=== PATIENT | male | born 1985 | race American Indian/Alaskan Native ===

== ENCOUNTER 2021-05-30 14:05 | Emergency (ER) | payer BC ==
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
[2021-05-30 16:54] VITALS: BP 114/78
== END 2021-05-30 16:48 | disposition home or self-care (01) ==
LOC: ED 14:05
DX: R21 Rash and other nonspecific skin eruption (principal)
CPT/HCPCS: 99282

== ENCOUNTER 2021-11-25 15:24 | Emergency (ER) | payer BC ==
[2021-11-25 16:01] VITALS: BP 118/67
--- NOTE | 2021-11-25 16:16 | Emergency Department Report ---
ED Recheck HPI - General Chief Complaint: Skin Rash Stated Complaint: SKIN OUTBREAK Time Seen by Provider: 11/25/21 16:11 Source: patient Mode of arrival: Ambulatory Limitations: No Limitations - History of Present Illness Initial Comments: This is a 36-year-old male nontoxic, well nourished in appearance, no acute signs of distress presents to the ED for medication refill for chronic rash. Patient stated has intermittent rash to neck area and was prescribed a topical medication and PO but does not remember the name of the medication or dosage. Patient otherwise denies any acute symptoms or complaints. Denies any rash at this time. Denies any itching or rash. Patient denies any drooling, hoarseness or facial swelling. Patient denies any trauma. She denies any fever, chills, nausea, vomiting, chest pain, shortness of breath, headache, stiff neck, numbness or tingling. Denies any allergies or PMH. MD Complaint: medication refill request Returns Today for: request for prescription Associated Symptoms: none. denies: fever, chills, chest pain, shortness of santi th, rash, malaise, nasuea, abdominal pain - Related Data Previous Rx's Medication Instructions Recorded Last Taken Type Sulfamethoxazole/Trimethoprim 1 each PO BID 10 Days #20 tab 05/30/21 Unknown Rx [Bactrim DS TAB] Allergies Allergy/AdvReac Type Severity Reaction Status Date / Time No Known Allergies Allergy Verified 05/30/21 15:27 ED Review of Systems ROS: Stated complaint: SKIN OUTBREAK Other details as noted in HPI Comment: All other systems reviewed and negative Constitutional: denies: chills, fever Eyes: denies: eye pain, eye discharge, vision change ENT: denies: ear pain, throat pain Respiratory: denies: cough, shortness of breath, wheezing Cardiovascular: denies: chest pain, palpitations Endocrine: no symptoms reported Gastrointestinal: denies: abdominal pain, nausea, diarrhea Genitourinary: denies: urgency, dysuria Musculoskeletal: denies: back pain, joint swelling, arthralgia Skin: denies: rash, lesions Neurological: denies: headache, weakness, paresthesias Psychiatric: denies: anxiety, depression Hematological/Lymphatic: denies: easy bleeding, easy bruising ED Past Medical Hx - Past Medical History Previous Medical History?: No - Medications Home Medications: Home Medications Medication Instructions Recorded Confirmed Last Taken Type Sulfamethoxazole/Trimethoprim 1 each PO BID 10 Days #20 tab 05/30/21 Unknown Rx [Bactrim DS TAB] ED Physical Exam - General Limitations: No Limitations General appearance: alert, in no apparent distress - Head Head exam: Present: atraumatic, normocephalic - Eye Eye exam: Present: normal appearance - ENT ENT exam: Present: normal exam, normal orophraynx - Neck Neck exam: Present: normal inspection, full ROM. Absent: lymphadenopathy - Respiratory Respiratory exam: Absent: respiratory distress - Cardiovascular Cardiovascular Exam: Present: regular rate - Extremities Exam Extremities exam: Present: full ROM - Back Exam Back exam: Present: full ROM - Neurological Exam Neurological exam: Present: alert, oriented X3, normal gait - Psychiatric Psychiatric exam: Present: normal affect, normal mood - Skin Skin exam: Present: warm, dry, intact, normal color. Absent: rash, cyanosis, diaphoretic, erythema, urticaria, vesicles, petechiae, pallor, abrasion, ecchymosis ED Course Vital Signs 11/25/21 15:54 Temperature 97.8 F Pulse Rate 77 Respiratory 18 Rate Blood Pressure 118/67 [Right] O2 Sat by Pulse 98 Oximetry - Reevaluation(s) Reevaluation #1: 11/25/21 16:15 Patient is speaking in full sentences with no signs of distress noted. ED Recheck MDM - Medical Decision Making 36-year-old male that presents with medication refill. Patient is stable with exam by me. Exam otherwise is unremarkable at this time. Patient does not remember the dose or name of the medication. Patient was instructed follow-up with a primary care doctor in 3-5 days for medication refill or if symptoms worsen and continue return to emergency room as soon as possible. At time of discharge, the patient does not seem toxic or ill in appearance. No acute signs of distress noted. Patient agrees to discharge treatment plan of care. No f urther questions noted by the patient. Critical care attestation.: If time is entered above; I have spent that time in minutes in the direct care of this critically ill patient, excluding procedure time. ED Disposition Clinical Impression: Medication refill Disposition: HOME / SELF CARE / HOMELESS Is pt being admited?: No Does the pt Need Aspirin: No Condition: Stable Additional Instructions: Follow-up with a primary care doctor in 3-5 days for medication refill or if symptoms worsen and continue return to emergency room as soon as possible. Referrals: [facility]IMARY [facility] [Referring] - 3-5 Days [place] ASHLEY MD [Staff Physician] - 3-5 Days Forms: Work/School Release Form(ED) Time of Disposition: 16:16
== END 2021-11-25 16:25 | disposition home or self-care (01) ==
LOC: ED 15:24
DX: R21 Rash and other nonspecific skin eruption (principal); Z76.0 Encounter for issue of repeat prescription
CPT/HCPCS: 99282